=== PATIENT | female | born 1945 | race Caucasian/White ===

== ENCOUNTER 2023-02-25 09:19 | Emergency (ER) | payer MEDICARE ==
[2023-02-25] MEDS ORDERED: Amoxicillin/Potassium Clav 875 MG TAB ONE (10:24)
== END 2023-02-25 10:30 | disposition home or self-care (01) ==
LOC: ERS 09:19
DX: S51.851A Open bite of right forearm, initial encounter (principal); L03.113 Cellulitis of right upper limb; I10 Essential (primary) hypertension; W55.01XA Bitten by cat, initial encounter
CPT/HCPCS: 99283

== ENCOUNTER 2023-03-12 10:39 | Emergency (ER) | payer MEDICARE ==
[2023-03-12] MEDS ORDERED: HYDROcodone/Acetaminophen 5/325 mg Tablet ONE (11:53)
[2023-03-12] MEDS ORDERED: Lidocaine 1% PF 5 ML VIAL ONE ×3 (11:57→13:14)
[2023-03-12] MEDS ORDERED: Bacitracin 1 PK ONE (14:00)
== END 2023-03-12 14:19 | disposition home or self-care (01) ==
LOC: ERS 10:39
DX: S51.812A Laceration without foreign body of left forearm, initial encounter (principal); I10 Essential (primary) hypertension; E78.00 Pure hypercholesterolemia, unspecified; W26.8XXA Contact with other sharp object(s), not elsewhere classified, initial encounter
CPT/HCPCS: 12004

== ENCOUNTER 2023-03-21 08:44 | Emergency (ER) | payer MEDICARE | END 2023-03-21 09:37 | disposition home or self-care (01) | LOC: ERS 08:44 | DX: L03.114 Cellulitis of left upper limb (principal); E78.00 Pure hypercholesterolemia, unspecified; I10 Essential (primary) hypertension | CPT/HCPCS: 99283 ==